=== PATIENT | female | born 1965 | race Caucasian/White ===

== ENCOUNTER → 2018-01-18 | Outpatient (CLI) | payer BC | LOC: M.RAD 06:57 | DX: Z12.31 Encounter for screening mammogram for malignant neoplasm of breast (principal); I25.10 Atherosclerotic heart disease of native coronary artery without angina pectoris ==

== ENCOUNTER → 2019-05-09 | Outpatient (CLI) | payer OTHER | LOC: M.RAD 07:12 | DX: Z12.31 Encounter for screening mammogram for malignant neoplasm of breast (principal) ==

== ENCOUNTER → 2019-12-19 | Outpatient (CLI) | payer OTHER | LOC: M.ULTRA 15:04 | PROVIDERS: ATTEND Nurse Practitioner Family | DX: M79.89 Other specified soft tissue disorders (principal); M79.662 Pain in left lower leg ==

== ENCOUNTER 2020-12-14 17:59 | Emergency (ER) | payer OTHER ==
[~2020-12-14] VITALS: Ht 160 cm; Wt 78.5 kg
[2020-12-14] MEDS ORDERED: KAPSPARGO SPRIN25 MG PO (18:15)
[2020-12-14 19:32] LABS: HEMATOCRIT 42.7 % (37.0-47.0); HEMOGLOBIN 14.7 gm/dL (12.0-15.0); MCH 30.9 pg (26.0-34.0); MCHC 34.4 g/dL (28.0-37.0); MCV 89.7 fL (80.0-100.0); MPV 8.2 fl. (7.2-11.1); NUCLEATED RBCS 0 /100WBC; PLATELET COUNT* 206 thou/uL (150-400); RBC 4.76 mil/uL (4.20-5.00); RDW-CV 12.9 % (10.5-14.5); WBC 8.4 thou/uL (4.0-11.0)
[2020-12-14 19:40] LABS: CALCIUM 8.6 mg/dL (8.5-10.1); CREATININE 1.1 mg/dL (0.6-1.3); POTASSIUM 3.6 mmol/L (3.5-5.1)
[2020-12-14 19:44] LABS: ALBUMIN 4.1 g/dL (3.4-5.0); TOTAL BILIRUBIN 0.8 mg/dL (<0.1-1.0); TOTAL PROTEIN 7.3 g/dL (6.4-8.2)
[2020-12-14 19:52] LABS: URINE BILIRUBIN NEGATIVE (Negative); URINE BLOOD NEGATIVE (Negative); URINE CLARITY CLEAR; URINE COLOR YELLOW; URINE GLUCOSE-RANDOM NEGATIVE (Negative); URINE KETONES 2+ (Negative); URINE LEUKOCYTES-REFLEX NEGATIVE (Negative); URINE NITRITE-REFLEX NEGATIVE (Negative); URINE PROTEIN TRACE (Negative); URINE SPECIFIC GRAVITY >= 1.030 (1.005-1.030); URINE UROBILINOGEN 0.2 E.U./dl (0.2-1.0)
[2020-12-14 19:56] LABS: ABSOLUTE LYMPHOCYTES 0.5 thou/uL (0.8-5.3); ABSOLUTE MONOCYTES 0.5 thou/uL (0.0-1.2); ABSOLUTE NEUTROPHILS 7.4 thou/uL (1.6-8.1)
[2020-12-14 19:57] LABS: CLUMPED PLTS OCCASIONAL; PLATELET ESTIMATE ADEQUATE
[2020-12-14] MEDS ORDERED: DICYCLOMINE HCL20 MG PO (21:00)
[2020-12-14 21:15] VITALS: BP 139/77
== END 2020-12-14 21:16 | disposition home or self-care (01) ==
LOC: M.ERS 17:59
PROVIDERS: Nurse Practitioner Family
DX: R19.7 Diarrhea, unspecified (principal); Z79.899 Other long term (current) drug therapy

== ENCOUNTER → 2021-05-13 | Outpatient (CLI) | payer OTHER ==
[~2021-05-13] MED LIST: DICYCLOMINE HCL20 MG PO; KAPSPARGO SPRIN25 MG PO
== END ==
LOC: M.RAD 11:05
PROVIDERS: ATTEND Family Medicine
DX: Z12.31 Encounter for screening mammogram for malignant neoplasm of breast (principal)